=== PATIENT | male | born 1980 | race Caucasian/White ===

== ENCOUNTER → 2019-07-05 11:50 | Outpatient (CLI) | payer BC, SELFPAY ==
[2019-07-05 14:04] LABS: Absolute Neutrophil Count 2.8 X10^3/uL (2.0-7.7); Basophil# 0.04 X10^3/uL; Basophil% 0.8 % (0-1); Eosinophil# 0.08 X10^3/uL; Eosinophils% 1.6 % (0-5); Hematocrit 46.6 % (40-54); Hemoglobin 15.9 g/dL (13.0-16.5); Lymphocyte % 33.2 % (19-41); Mean Corp Hgb Conc 34.1 g/dL (32-36); Mean Corpuscular Hgb 29.9 pg (27.0-32.0); Mean Corpuscular Volume 87.6 fL (80-94); Mean Platelet Vol. 11.4 fl (6.2-12.0); Monocyte% 9.8 % (0-10); NRBC Flagged by Analyzer 0 % (0-5); Neutrophil # 2.77 X10^3/uL (2.7-7.7); Platelet Count 186 K/mm3 (150-450); RBC Distribution Width CV 12.7 % (11.6-14.6); RBC Distribution Width SD 40.4 fl (35.1-43.9); Red Blood Count 5.32 M/mm3 (4.6-6.2); White Blood Count 5.1 K/mm3 (4.4-11.0)
[2019-07-05 14:31] LABS: ALB/GLOB Ratio 1.2 RATIO (0.9-2.4); AST(SGOT) 22 U/L (15-37); Alanine Aminotransfer ALT/SGPT 45 U/L (16-61); Albumin, Serum 4.2 g/dL (3.2-5.0); Alkaline Phosphatase 88 U/L (45-117); Anion Gap 5 (5-15); BUN 15 mg/dL (7-18); BUN/Creat Ratio 14.2 RATIO (10-20); Calcium,Total 9.1 mg/dL (8.5-10.1); Chloride 105 mmol/L (98-107); Creatinine, Serum 1.06 mg/dL (0.70-1.30); EST Glomerular Filtration Rate 82 mL/min (>60); Est Glom Filt Rate - Afr Amer 99 mL/min (>60); Ferritin 399 ng/mL (26-388); Globulin 3.6 g/dL (2.2-4.2); Glucose 91 mg/dL (74-106); Iron 105 ug/dL (65-175); Iron Binding Capacity,Total 347 ug/dL (250-450); PERCENT IRON SATURATION 30.3 % (15.0-55.0); PSA,Total - Annual Screen 1.53 ng/mL (0.00-4.00); Protein, Total 7.8 g/dL (6.4-8.2); Sodium Level 138 mmol/L (136-145); Thyroid Stim Hormone (TSH) 1.08 uIU/mL (0.358-3.74); Uric Acid 7.2 mg/dL (3.5-7.2)
== END ==
PROVIDERS: Family Medicine; Family Provider Family Medicine; PCP Family Medicine; Visit Provider Family Medicine
DX: Z00.00 Encounter for general adult medical examination without abnormal findings (principal); Z83.49 Family history of other endocrine, nutritional and metabolic diseases
CPT/HCPCS: 36415; 80053; 82728; 83540; 83550; 84153; 84443; 84550; 85025; G0103

== ENCOUNTER → 2020-05-01 08:36 | Outpatient (CLI) | payer BC, SELFPAY ==
[2019-07-26 13:01] VITALS: BMI 35.1
[2020-05-01 09:45] LABS: Absolute Lymphocyte Count 1.88 X10^3/uL (0.83-4.51); Absolute Neutrophil Count 1.9 X10^3/uL (2.0-7.7); Basophil# 0.02 X10^3/uL; Basophil% 0.5 % (0-1); Eosinophil# 0.06 X10^3/uL; Eosinophils% 1.4 % (0-5); Hemoglobin 15.5 g/dL (13.0-16.5); Lymphocyte # 1.88 X10^3/ul (4.0); Lymphocyte % 44.7 % (19-41); Mean Corp Hgb Conc 35.2 g/dL (32-36); Mean Corpuscular Hgb 31.1 pg (27.0-32.0); Mean Corpuscular Volume 88.2 fL (80-94); Mean Platelet Vol. 11.4 fl (6.2-12.0); Monocyte# 0.35 X10^3/uL; Monocyte% 8.3 % (0-10); NRBC Flagged by Analyzer 0 % (0-5); Neutrophil # 1.88 X10^3/uL (2.7-7.7); Neutrophil % 44.6 % (47-70); Platelet Count 157 K/mm3 (150-450); RBC Distribution Width CV 12.7 % (11.6-14.6); RBC Distribution Width SD 39.6 fl (35.1-43.9); Red Blood Count 4.99 M/mm3 (4.6-6.2); White Blood Count 4.2 K/mm3 (4.4-11.0)
[2020-05-01 09:59] LABS: ALB/GLOB Ratio 1.3 RATIO (0.9-2.4); AST(SGOT) 21 U/L (15-37); Alanine Aminotransfer ALT/SGPT 42 U/L (16-61); Albumin, Serum 4.2 g/dL (3.2-5.0); Alkaline Phosphatase 76 U/L (45-117); Anion Gap 8 (5-15); BUN 17 mg/dL (7-18); BUN/Creat Ratio 17.2 RATIO (10-20); Bilirubin, Direct 0.15 mg/dL (0.00-0.30); Calcium,Total 8.9 mg/dL (8.5-10.1); Chloride 106 mmol/L (98-107); Cholesterol 165 mg/dL (200); Creatinine, Serum 0.99 mg/dL (0.70-1.30); EST Glomerular Filtration Rate 88 mL/min (>60); Est Glom Filt Rate - Afr Amer 107 mL/min (>60); Globulin 3.2 g/dL (2.2-4.2); Glucose 97 mg/dL (74-106); High Density Lipoprotein 37 mg/dL; Potassium 3.9 mmol/L (3.5-5.1); Protein, Total 7.4 g/dL (6.4-8.2); Sodium Level 140 mmol/L (136-145); Triglycerides 359 mg/dL; Very Low Density Lipoprotein 72 mg/dL (5-40)
[2020-05-01 12:14] LABS: Hepatitis B Surface Antibody Non-Reactive; Hepatitis B Surface Antigen Non-Reactive (Nonreactive); Hepatitis C Antibody Non-Reactive (Nonreactive)
[2020-05-04 08:08] LABS: QNTFERON TB Mitogen Value > 10.00 IU/mL (.); QNTFERON TB Nil Value 0.03 IU/mL (.); QNTFERON TB1+ Ag Value 0.07 IU/mL (.); QNTFERON TB2+ Ag Value 0.04 IU/mL (.)
[2020-05-04 09:29] LABS: Hepatitis B Core Ab Total Negative (Negative); QNTIFERON TB Positive Criteria Negative (Negative)
== END ==
PROVIDERS: PCP Family Medicine; Referring Provider Family Medicine; Visit Provider Family Medicine
DX: L40.0 Psoriasis vulgaris (principal); Z79.899 Other long term (current) drug therapy; E78.1 Pure hyperglyceridemia
CPT/HCPCS: 36415; 80053; 80061; 82248; 85025; 86480; 86704; 86706; 86803; 87340

== ENCOUNTER 2020-08-07 13:00 | Outpatient (RCR) | payer BC, SELFPAY ==
[2019-07-26 13:01] VITALS: BMI 35.1
--- NOTE | 2020-07-10 11:59 | HP.OTEVAL ---
Patient's Visit Information GERTRUDIS HOOKS is a 39 year old M, referred to Occupational Therapy by Dr. Ha Clark MD, with a diagnosis of right thumb sprain/strain. 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 - Pain right thumb 4 Pain Intensity Range: 3, 4 - ROM CMC: right 20 left 15 MP: right 60 left 60 IP: right 70 left 75 Radial Abduction: right 40 left 38 - Strength Sports Journalist: right 130# left 120# Lateral Pinch: right 22# left 26# Tripod Pinch: right 18# left 30# Tip-to-Tip Pinch: rignt 10# left 20# - Sensation Sensation Comments: zak - Quick DASH-Disab of Arm,Shoulder& Hand Quick DASH Score: 36.6650 - Goals Goal:: pt will demo a increase in right lateral and tripod pinch strength by 4 # to increase pts ind. with ADls and IADLs by d/c Goal:: pt will report pain no greater than 1/10 with use of right hand with work tasks by d/c Goal:: Pt will demo understanding of work/lifting and carry ergonomics to decrease stress on tendons to increase pts independent with ADLs, IADLS and work tasks by d/c. Goal:: Pt will demo understanding of orthosis use and precautions by end of 1st session. Pt will return to clinic for orthosis adjustment. - Rehabilitation General Assessment: pt demo with pain and weak pinch- plapation tenderness at right dorsal interosseous muscle- this limits pts ind. with work tasks and home mtg tasks. Pt would benefit from OT services 1-2x week for 4 weeks to decrease pain, cathleen. custom protective orthosis and ed, pt on work ergo to prevent continuation of injury. Today therapist cathleen. custom supportive orthosis for right thumb. ed. on work ergo and joint protection along with US to right 1st dorsal interosseous muscles. Rehabilitation Potential: Good - Anticipated Interventions A/AAROM/PROM, Strengthening, Triggerpoint Release, Modalities, Orthoses, Joint Protection/Energy Conservation, Ergonomic Education, Fine Motor Coord/Saul - Visit Plan Frequency: 1-2x /Week Duration: 4 Weeks TEXT: Thank you for the opportunity to evaluate your patient. For Medicare and Medicare HMO plans, please review the plan of care and approve it. It will need to be FAXED BACK to us at [phone] for Medicare purposes. Please let me know if there are questions or concerns regarding this plan of care. Physician Signature: Date:
--- NOTE | 2020-08-08 09:48 | HP.OTDCSUM ---
It has been my pleasure to treat GERTRUDIS HOOKS under orders from Dr. Ha Clark MD, for the diagnosis of right thumb sprain/strain for a total of 4 visit(s). Please see the following information for a summary of their discharge status. % Improvement: 85 Objective/Function: R Scientist Engineer 175# initial necktie operator pockets and pieces was 130#. R Lat Pinch 26# inital 22 #. R Tripod 19# initial 18#. Tip to Tip 13# inital 10#. pt has made gains in strength and reprots ind. with ADls and IADLs Patient Goals: Decrease Pain, Use Hand/Wrist/Arm Normally Again, Decrease Tingling/Numbness, Be More Independent in ADLS Goal:: pt will demo a increase in right lateral and tripod pinch strength by 4 # to increase pts ind. with ADls and IADLs by d/c Goal:: pt will report pain no greater than 1/10 with use of right hand with work tasks by d/c Goal:: Pt will demo understanding of work/lifting and carry ergonomics to decrease stress on tendons to increase pts independent with ADLs, IADLS and work tasks by d/c. Goal:: Pt will demo understanding of orthosis use and precautions by end of 1st session. Pt will return to clinic for orthosis adjustment. Plan: pt would like discharged Discharge Comments: Pt has met OT goals and reports IND with ADLs and IADLS. If there are questions or concerns regarding this patient's occupational therapy, please fell free to call me at [phone]. Thank you for the referral of this patient. Sincerely, Linnea Sorto, OTR/L, CHT
== END 2020-08-07 19:00 | disposition home or self-care (01) ==
LOC: OT 13:00
PROVIDERS: PCP Family Medicine; Referring Provider Family Medicine; Visit Provider Family Medicine
DX: S69.91XD Unspecified injury of right wrist, hand and finger(s), subsequent encounter (principal)
CPT/HCPCS: 97035; 97140; 97166; 97530; 97760

== ENCOUNTER → 2020-10-30 09:40 | Outpatient (CLI) | payer BC, SELFPAY ==
[2019-07-26 13:01] VITALS: BMI 35.1
[2020-10-30 12:49] LABS: Absolute Lymphocyte Count 2.06 X10^3/uL (0.83-4.51); Absolute Neutrophil Count 2.5 X10^3/uL (2.0-7.7); Basophil# 0.03 X10^3/uL; Basophil% 0.6 % (0-1); Eosinophil# 0.09 X10^3/uL; Eosinophils% 1.8 % (0-5); Hematocrit 45.5 % (40-54); Hemoglobin 15.5 g/dL (13.0-16.5); Lymphocyte # 2.06 X10^3/ul (4.0); Lymphocyte % 40.7 % (19-41); Mean Corp Hgb Conc 34.1 g/dL (32-36); Mean Corpuscular Hgb 30.2 pg (27.0-32.0); Mean Corpuscular Volume 88.5 fL (80-94); Mean Platelet Vol. 11.5 fl (6.2-12.0); Monocyte# 0.37 X10^3/uL; Monocyte% 7.3 % (0-10); NRBC Flagged by Analyzer 0 % (0-5); Neutrophil # 2.49 X10^3/uL (2.7-7.7); Neutrophil % 49.2 % (47-70); Platelet Count 176 K/mm3 (150-450); RBC Distribution Width CV 12.6 % (11.6-14.6); RBC Distribution Width SD 40.8 fl (35.1-43.9); Red Blood Count 5.14 M/mm3 (4.6-6.2); White Blood Count 5.1 K/mm3 (4.4-11.0)
[2020-10-30 13:23] LABS: ALB/GLOB Ratio 1.3 RATIO (0.9-2.4); AST(SGOT) 21 U/L (15-37); Alanine Aminotransfer ALT/SGPT 38 U/L (16-61); Albumin, Serum 4.1 g/dL (3.2-5.0); Alkaline Phosphatase 81 U/L (45-117); Anion Gap 5 (5-15); BUN 16 mg/dL (7-18); BUN/Creat Ratio 13.9 RATIO (10-20); Calcium,Total 8.9 mg/dL (8.5-10.1); Chloride 104 mmol/L (98-107); Cholesterol 178 mg/dL (200); Creatinine, Serum 1.15 mg/dL (0.70-1.30); EST Glomerular Filtration Rate 74 mL/min (>60); Est Glom Filt Rate - Afr Amer 90 mL/min (>60); Ferritin 246 ng/mL (26-388); Globulin 3.1 g/dL (2.2-4.2); Glucose 99 mg/dL (74-106); High Density Lipoprotein 42 mg/dL; Protein, Total 7.2 g/dL (6.4-8.2); Sodium Level 138 mmol/L (136-145); Triglycerides 401 mg/dL
== END ==
PROVIDERS: PCP Family Medicine; Referring Provider Family Medicine; Visit Provider Family Medicine
DX: E78.1 Pure hyperglyceridemia (principal); Z14.8 Genetic carrier of other disease
CPT/HCPCS: 36415; 80053; 80061; 82728; 85025

== ENCOUNTER → 2021-06-22 10:04 | Outpatient (CLI) | payer BC, SELFPAY ==
[2021-06-29 17:07] LABS: QNTFERON TB Mitogen Value > 10.00 IU/mL (.); QNTFERON TB1+ Ag Value 0.06 IU/mL (.); QNTFERON TB2+ Ag Value 0.07 IU/mL (.)
[2021-06-29 20:17] LABS: QNTIFERON TB Positive Criteria Negative (Negative)
== END ==
PROVIDERS: PCP Family Medicine; Referring Provider Family Medicine; Visit Provider Dermatology
DX: L40.0 Psoriasis vulgaris (principal); Z79.899 Other long term (current) drug therapy
CPT/HCPCS: 36415; 86480

== ENCOUNTER → 2022-06-27 | Outpatient (CLI) | payer BC, SELFPAY ==
[2022-06-27 15:22] LABS: Absolute Lymphocyte Count 1.76 X10^3/uL (0.83-4.51); Absolute Neutrophil Count 1.8 X10^3/uL (2.0-7.7); Basophil# 0.03 X10^3/uL; Basophil% 0.7 % (0-1); Eosinophil# 0.05 X10^3/uL; Eosinophils% 1.2 % (0-5); Hematocrit 46.4 % (40-54); Hemoglobin 16.3 g/dL (13.0-16.5); Lymphocyte # 1.76 X10^3/ul (0.83-4.51); Lymphocyte % 43.7 % (19-41); Mean Corp Hgb Conc 35.1 g/dL (32-36); Mean Corpuscular Volume 88.4 fL (80-94); Mean Platelet Vol. 11.5 fl (6.2-12.0); Monocyte# 0.38 X10^3/uL; Monocyte% 9.4 % (0-10); NRBC Flagged by Analyzer 0 % (0-5); Neutrophil # 1.79 X10^3/uL (2.7-7.7); Neutrophil % 44.5 % (47-70); Platelet Count 196 K/mm3 (150-450); RBC Distribution Width CV 12.8 % (11.6-14.6); RBC Distribution Width SD 41.3 fl (35.1-43.9); Red Blood Count 5.25 M/mm3 (4.6-6.2)
[2022-06-27 15:44] LABS: ALB/GLOB Ratio 1.2 RATIO (0.9-2.4); AST(SGOT) 19 U/L (15-37); Alanine Aminotransfer ALT/SGPT 37 U/L (16-61); Albumin, Serum 4.1 g/dL (3.2-5.0); Alkaline Phosphatase 72 U/L (45-117); Anion Gap 5 (5-15); BUN 14 mg/dL (7-18); BUN/Creat Ratio 12.5 RATIO (10-20); Calcium,Total 9.1 mg/dL (8.5-10.1); Chloride 105 mmol/L (98-107); Creatinine, Serum 1.12 mg/dL (0.70-1.30); EST Glomerular Filtration Rate 76 mL/min (>60); Est Glom Filt Rate - Afr Amer 92 mL/min (>60); Globulin 3.3 g/dL (2.2-4.2); Glucose 83 mg/dL (74-106); Potassium 4.4 mmol/L (3.5-5.1); Protein, Total 7.4 g/dL (6.4-8.2); Sodium Level 137 mmol/L (136-145)
[2022-06-28 07:44] LABS: Hepatitis B Surface Antibody Non-Reactive
[2022-06-29 21:07] LABS: HEPATITIS B SURFACE AG Negative (Negative); Hep C Antibodies <0.1 s/co ratio (0.0-0.9); Hepatitis A IgM Antibody Negative (Negative); Hepatitis B Core AB IgM Negative (Negative); QNTFERON TB Mitogen Value > 10.00 IU/mL (.); QNTFERON TB Nil Value 0.01 IU/mL (.); QNTFERON TB1+ Ag Value 0.03 IU/mL (.); QNTFERON TB2+ Ag Value 0.04 IU/mL (.)
[2022-06-30 15:29] LABS: Hepatitis A AB, Total Negative (Negative); QNTIFERON TB Positive Criteria Negative (Negative)
== END | disposition home or self-care (01) ==
LOC: MFPLAB 11:27
PROVIDERS: PCP Family Medicine; Referring Provider Family Medicine; Visit Provider Physician Assistant
DX: L40.0 Psoriasis vulgaris (principal); Z79.899 Other long term (current) drug therapy
CPT/HCPCS: 36415; 80053; 80074; 85025; 86480; 86706; 86708

== ENCOUNTER → 2023-07-25 | Outpatient (CLI) | payer BC, SELFPAY ==
[2023-07-29 21:07] LABS: Hepatitis B Core Ab Total Negative (Negative); QNTFERON TB Mitogen Value > 10.00 IU/mL (.); QNTFERON TB Nil Value 0 IU/mL (.); QNTFERON TB1+ Ag Value 0 IU/mL (.); QNTFERON TB2+ Ag Value 0.03 IU/mL (.); QNTIFERON TB Positive Criteria Negative (Negative)
== END | disposition home or self-care (01) ==
LOC: MFPLAB 09:12
PROVIDERS: PCP Family Medicine; Visit Provider Physician Assistant Medical
DX: L40.0 Psoriasis vulgaris (principal); Z79.899 Other long term (current) drug therapy; L82.0 Inflamed seborrheic keratosis; L29.8 Other pruritus; R20.8 Other disturbances of skin sensation; L53.8 Other specified erythematous conditions
CPT/HCPCS: 36415; 86480; 86704

== ENCOUNTER → 2024-06-03 | Outpatient (CLI) | payer BC, SELFPAY ==
[2024-06-05 19:06] LABS: QNTFERON TB Mitogen Value > 10.00 IU/mL (.); QNTFERON TB Nil Value 0 IU/mL (.); QNTFERON TB1+ Ag Value 0.01 IU/mL (.); QNTFERON TB2+ Ag Value 0.03 IU/mL (.); QNTIFERON TB Positive Criteria Negative (Negative)
== END | disposition home or self-care (01) ==
PROVIDERS: PCP Family Medicine; Referring Provider Physician Assistant Medical; Visit Provider Physician Assistant Medical
DX: L40.0 Psoriasis vulgaris (principal); Z79.899 Other long term (current) drug therapy
CPT/HCPCS: 36415; 86480

== ENCOUNTER → 2024-06-04 | Outpatient (CLI) | payer BC, SELFPAY ==
[2024-06-04 10:42] LABS: Absolute Lymphocyte Count 1.73 X10^3/uL (0.83-4.51); Absolute Neutrophil Count 1.8 X10^3/uL (2.0-7.7); Basophil# 0.02 X10^3/uL; Basophil% 0.5 % (0-1); Eosinophil# 0.09 X10^3/uL; Eosinophils% 2.3 % (0-5); Hematocrit 44.6 % (40-54); Hemoglobin 15.1 g/dL (13.0-16.5); Lymphocyte # 1.73 X10^3/ul (0.83-4.51); Lymphocyte % 43.4 % (19-41); Mean Corp Hgb Conc 33.9 g/dL (32-36); Mean Corpuscular Hgb 30.2 pg (27.0-32.0); Mean Corpuscular Volume 89.2 fL (80-94); Mean Platelet Vol. 11.8 fl (6.2-12.0); Monocyte# 0.34 X10^3/uL; Monocyte% 8.5 % (0-10); NRBC Flagged by Analyzer 0 % (0-5); Neutrophil # 1.78 X10^3/uL (2.7-7.7); Neutrophil % 44.5 % (47-70); Platelet Count 164 K/mm3 (150-450); RBC Distribution Width CV 12.9 % (11.6-14.6)
[2024-06-04 11:32] LABS: ALB/GLOB Ratio 1.2 RATIO (0.9-2.4); AST(SGOT) 19 U/L (15-37); Alanine Aminotransfer ALT/SGPT 37 U/L (16-61); Albumin, Serum 3.9 g/dL (3.2-5.0); Alkaline Phosphatase 68 U/L (45-117); Anion Gap 6 (5-15); BUN 17 mg/dL (7-18); BUN/Creat Ratio 15.5 RATIO (10-20); Calcium,Total 9.2 mg/dL (8.5-10.1); Chloride 107 mmol/L (98-107); Cholesterol 192 mg/dL (200); EST Glomerular Filtration Rate 77 mL/min (>60); Est Glom Filt Rate - Afr Amer 93 mL/min (>60); Globulin 3.2 g/dL (2.2-4.2); Glucose 99 mg/dL (74-106); High Density Lipoprotein 34 mg/dL; Protein, Total 7.1 g/dL (6.4-8.2); Sodium Level 139 mmol/L (136-145); Triglycerides 410 mg/dL
== END | disposition home or self-care (01) ==
LOC: MFPLAB 08:03
PROVIDERS: PCP Family Medicine; Visit Provider Family Medicine
DX: Z13.1 Encounter for screening for diabetes mellitus (principal); E78.1 Pure hyperglyceridemia; Z14.8 Genetic carrier of other disease; L40.9 Psoriasis, unspecified
CPT/HCPCS: 36415; 80053; 80061; 85025; 86900; 86901

== ENCOUNTER → 2024-09-03 | Outpatient (CLI) | payer BC, SELFPAY ==
[2024-09-03 10:23] LABS: Absolute Lymphocyte Count 0.73 X10^3/uL (0.83-4.51); Absolute Neutrophil Count 4.6 X10^3/uL (2.0-7.7); Basophil# 0.03 X10^3/uL; Basophil% 0.5 % (0-1); Eosinophil# 0.02 X10^3/uL; Eosinophils% 0.3 % (0-5); Hematocrit 44.9 % (40-54); Hemoglobin 14.9 g/dL (13.0-16.5); Lymphocyte # 0.73 X10^3/ul (0.83-4.51); Lymphocyte % 11.5 % (19-41); Mean Corp Hgb Conc 33.2 g/dL (32-36); Mean Corpuscular Hgb 29.6 pg (27.0-32.0); Mean Corpuscular Volume 89.1 fL (80-94); Mean Platelet Vol. 11.5 fl (6.2-12.0); Monocyte# 0.92 X10^3/uL; Monocyte% 14.5 % (0-10); NRBC Flagged by Analyzer 0 % (0-5); Neutrophil # 4.61 X10^3/uL (2.7-7.7); Neutrophil % 72.7 % (47-70); Platelet Count 165 K/mm3 (150-450); RBC Distribution Width CV 12.8 % (11.6-14.6); RBC Distribution Width SD 41.8 fl (35.1-43.9); Red Blood Count 5.04 M/mm3 (4.6-6.2); White Blood Count 6.3 K/mm3 (4.4-11.0)
[2024-09-04 10:07] LABS: Lyme Scn Total Ab w/Rflx Negative (Negative)
== END | disposition home or self-care (01) ==
LOC: MFPLAB 08:30
PROVIDERS: PCP Family Medicine; Referring Provider Family Medicine; Visit Provider Family Medicine
DX: R68.89 Other general symptoms and signs (principal)
CPT/HCPCS: 36415; 85025; 86140; 86618

== ENCOUNTER 2024-11-19 09:13 | Day surgery (SDC) | payer BC, SELFPAY ==
[2024-11-19] VITALS (8 sets, daily range): BP systolic 103–136; BP diastolic 64–96; PULSE 70–82; RESP 16–20; TEMP 36–36.4; O2SAT 95–98; BMI 34.8
--- NOTE | 2024-11-19 09:39 | PCM.PRE.AN2 ---
ASA Classification* ASA Classification ASA Classification: 2 Assessment & Plan Anesthesia* Anesthesia Assessment Anesthesia Assessment: Discussed sedation and/or anesthesia options, risks, benefits, and alternatives with patient/parents/legal guardian/POA. Questions invited. The patient/parents/legal guardian/POA seems to understand and agrees to proceed with anesthesia plan. Reviewed the physical assessment, medical history, allergy history and patient home medications list prior to surgery/procedure/anesthetic and documented any changes. Performed airway and anesthesia risk assessments. Anesthesia Type Anesthesia Type: MAC Anesthesia Focused Assessment* Airway Assessment Mouth opens: >3 cm Mallampati Score: II Focused Labs Anesthesia Preop lab: CBC WBC 6.3 K/mm3 (4.4-11.0) 09/03/24 08:30 09/03/24 RBC 5.04 M/mm3 (4.6-6.2) 09/03/24 08:30 09/03/24 Hgb 14.9 g/dL (13.0-16.5) 09/03/24 08:30 09/03/24 Hct 44.9 % (40-54) 09/03/24 08:30 09/03/24 Plt Count 165 K/mm3 (150-450) 09/03/24 08:30 09/03/24 CHEMISTRY Potassium 4.0 mmol/L (3.5-5.1) 06/04/24 08:04 06/04/24 Sodium 139 mmol/L (136-145) 06/04/24 08:04 06/04/24 BUN 17 mg/dL (7-18) 06/04/24 08:04 06/04/24 Creatinine 1.10 mg/dL (0.70-1.30) 06/04/24 08:04 06/04/24 Glucose 99 mg/dL (74-106) 06/04/24 08:04 06/04/24 TSH 1.08 uIU/mL (0.358-3.74) 07/05/19 11:54 07/05/19 COAG Pre-Assessment Diagnosis/Proposed Procedure Planned Operative Procedure(s): COLONOSCOPY Anesthesia History Anesthesia History - college admissions counselor: Anesthesia History - college admissions counselor Hx Hospitalization No 11/18/24 12:53 Any Problems With Anesthesia No 11/18/24 12:53 Cholinesterase deficiency No 11/18/24 12:53 You/Your Family Experience No 11/18/24 12:53 fever (hyperthermia) with Relationship Recent Exposure to Contagious Disease Does patient have nerve No 11/18/24 12:53 stimulator Patient instructed to have device shut off --Does patient have Pacemaker or ICD? When Was Last Pacemaker Check QUESTION #4 FULL TEXT: You/Your Family Experience fever (hyperthermia) with Anesthesia Last Oral Intake Last Oral intake: Last Oral Intake NPO since Meds taken in AM with sips of water? Meds patient instructed to take am of surgery PONV PONV - college admissions counselor: PONV - college admissions counselor Female No 11/18/24 12:53 HX of Motion Sickness No 11/18/24 12:53 HX of N/V After Surgery No 11/18/24 12:53 Non-Smoker No 11/18/24 12:53 Duration of Surgery greater No 11/18/24 12:53 than 60 minutes Number of Risk Factors PONV Score Height & Weight Height & Weight: Anesthesia: Height & Weight Height 6 ft 11/05/24 14:14 Respiratory Assessment Respiratory Assessment - college admissions counselor: Respiratory Tract Infection Hx - college admissions counselor Hx Respiratory Tract Infection No 11/18/24 12:53 STOP Sleep Apnea STOP Sleep Apnea - college admissions counselor: STOP Sleep Apnea - college admissions counselor Hx Hypertension No 11/18/24 12:53 Hx Sleep Apnea No 11/18/24 12:53 CPAP BIPAP Do you snore loudly (louder No 11/18/24 12:53 than talking or can be heard Do you often feel tired/ No 11/18/24 12:53 fatigued/ sleepy during daytime? Has anyone observed you stop No 11/18/24 12:53 breathing during sleep? STOP Results Negative 11/18/24 12:53 QUESTION #5 FULL TEXT : Do you snore loudly (louder than talking or can be heard through closed doors)? Tobacco Use History Tobacco Use History - college admissions counselor: Tobacco Use History - college admissions counselor Tobacco Use Smoking Status Light Smoker (<10/day) 11/18/24 12:53 Hx Tobacco Use Yes 11/18/24 12:53 Years Smoking Packs Smoked per Day Smoking Cessation Date was within the last 15 years Hx Smoking Cessation Date Hx Smoking Cessation Counseling Hematologic Medial History Hematologic Hx - college admissions counselor: Hematologic Medical Hx - body artist Hx of Blood Transfusion No 11/18/24 12:53 Hx of Transfusion in last 3 No 11/18/24 12:53 Months Date of Last Transfusion (if within last 3 months) Ever experience any problems No 11/18/24 12:53 with transfusion(s)? Specify any problems Hx of Preganancy in last 3 N/A 11/18/24 12:53 Months Nurse Filling Out Transfusion [facility] 11/18/24 12:53 & Questions: Date: 11/18/24 11/18/24 12:53 Time: 12:59 11/18/24 12:53 Patient unable to answer at this time (ie. confused, unrespo /Reproduction History /Reproductive History - college admissions counselor: /Reproductive Hx- college admissions counselor Hx Now Gestational Age (in weeks): EDC: Hx Hx Para Hx Section SAB PFSH Medical History Marijuana use Alcohol use History of steroid therapy High cholesterol Gastric reflux Smoker Psoriasis Hypertriglyceridemia Home Medications ?Medication ?Instructions ?Recorded ?Last Taken ?Type omega 3-dha 60 mg-epa 90 mg-fish 500 mg PO DAILY 07/12/19 11/13/24 History oil 500 mg capsule, delayed release ustekinumab 90 mg/mL subcutaneous 90 mg subcut Q12W 11/05/24 Unknown History syringe (Stelara) Allergy/AdvReac Type Severity Reaction Status Date / Time No Known Allergies Allergy Verified 07/26/19 13:01 Family History Father hemachromatosis Brother Crohn's disease Surgical History Hx of appendectomy Social History household members: spouse current occupational status: employed Smoking Status: Light Smoker (<10/day) alcohol intake: current alcohol intake frequency: holidays/special occasions only substance use type: does not use Review of Systems (Anesthesia) ROS Narrative System reviewed and no additional complaints, except as documented.
--- NOTE | 2024-11-19 10:03 | PCM.HP.STD ---
HPI - General General Date of Admission: 11/19/24 Date of Service: 11/19/24 Chief Complaint: Screening colonoscopy HPI Narrative GERTRUDIS HOOKS, is a 44 M who presents for screening colonoscopy. No previous colonoscopies. No family history of colon polyps or colon cancers. He denies any GI symptoms or problems [facility] Medical History Marijuana use Alcohol use History of steroid therapy High cholesterol Gastric reflux Smoker Psoriasis Hypertriglyceridemia Home Medications ?Medication ?Instructions ?Recorded ?Last Taken ?Type omega 3-dha 60 mg-epa 90 mg-fish 500 mg PO DAILY 07/12/19 11/13/24 History oil 500 mg capsule, delayed release ustekinumab 90 mg/mL subcutaneous 90 mg subcut Q12W 11/05/24 Unknown History syringe (Stelara) Allergy/AdvReac Type Severity Reaction Status Date / Time No Known Allergies Allergy Verified 11/19/24 09:45 Family History Father hemachromatosis Brother Crohn's disease Surgical History Hx of appendectomy Social History household members: spouse current occupational status: employed Smoking Status: Light Smoker (<10/day) alcohol intake: current alcohol intake frequency: holidays/special occasions only substance use type: does not use Vital Signs Vital Signs Vital Signs: 11/19/24 09:46 11/19/24 09:46 Temperature 97.3 F L Temperature Source Temporal Pulse Rate 71 Respiratory Rate 16 Respiratory Pattern Normal Blood Pressure 136/90 H Blood Pressure Mean 105 Blood Pressure Source Monitor Blood Pressure Position Semi-Fowlers Blood Pressure Location Left Arm Pulse Ox 98 Oxygen Delivery Method Room Air Weight Weight: 256 lb 9.889 oz Body Mass Index (BMI) 34.8 Physical Exam Const alert, oriented x3 and no apparent distress Assessment & Plan Assessment/Plan (1) Encounter for screening for malignant neoplasm of colon: PLAN: Plan The patient is a 44-year-old male who is being seen today for colonoscopy. This will be his first colonoscopy. He has no family history of GI polyps or cancers. He denies any GI concerns or symptoms. We discussed the details of the planned procedure and he wishes to proceed. This will begin momentarily Charges/Coding Visit Charges Inpatient E&M: 74263 Init Hosp L1
--- NOTE | 2024-11-19 10:30 | EGD_PTH ---
PATIENT: GERTRUDIS HOOKS LOC: EN U#:[id number] AGE/SX: 44/M ROOM: RE11/19/[address]: Dr. Filippo Gonzalez MD : 1980 BED: DIS: 11/19/2024 SPEC #: [id number] RECD: 11/19/24 13:36 STATUS: BARBARA REViridiana #: [id number] JOSE: 11/19/24 10:[address]: Filippo Gonzalez DEPT: SURGICAL PATHOLOGY RECD BY: Roman Benavides ENTERED: 11/19/24 13:36 SP TYPE: EGD BIOPSY OTHR DR: Charlie Thomas MD Tissues: A - Rectum, NOS Procedures: Surgery Specimen Level IV HEADER OPERATION: Colonoscopy PRE-OP DIAGNOSIS: Encounter for screening for malignant neoplasm of colon TISSUE SUBMITTED: A- Rectum biopsy MICROSCOPIC DIAGNOSIS A. Rectum, biopsy: * Hyperplasic polyp. MICROSCOPIC DESCRIPTION Slides are reviewed. GROSS DESCRIPTION A. Received in fixative is one container labeled with the patient's name and designated Rectum biopsy. The specimen consists of one irregular fragment of light jimenez soft tissue that measures 0.6 x 0.2 x 0.2 cm. The specimen is totally submitted in one cassette. GISSELL/ 11/19/2024 CPT:06403
--- NOTE | 2024-11-19 10:40 | OP.CCLET_ITS ---
11/19/2024 Charlie Thomas Md Re : Colonoscopy procedure for Pablo Thomas This procedure was performed on Tuesday, November 19, 2024. My impressions and recommendations are as follows: Impressions : - Preparation of the colon was fair. - One 3 mm polyp in the rectum, removed with a cold biopsy forceps. Resected and retrieved. - The examination was otherwise normal on direct and retroflexion views. Recommendations : - Discharge patient to home (ambulatory). - High fiber diet. - Await pathology results. - Repeat colonoscopy in 5-10 years for surveillance based on pathology results. - Return to my office PRN - Continue present medications. My findings are described in the full procedure note, which is enclosed. If I can be of further assistance, please feel free to contact me at . Sincerely, Filippo Gonzalez MD 11/19/2024 10:39:24 AM This report has been signed electronically.
--- NOTE | 2024-11-19 10:40 | OP.COLON_ITS ---
Patient Name: Pablo Barnes Procedure Date: 11/19/2024 10:00 AM Date of : 1980 Age: 44 Procedure: Colonoscopy Indications: Screening for colorectal malignant neoplasm Providers: Filippo Gonzalez MD Referring MD: Charlie Thomas Md Medicines: Monitored Anesthesia Care Patient Profile: Refer to note in patient chart for documentation of history and physical. Last Colonoscopy: none. The patient's first colonoscopy is today. Complications: No immediate complications. Estimated blood loss: Minimal. Procedure: Pre-Anesthesia Assessment: - Prior to the procedure, a History and Physical was performed, and patient medications and allergies were reviewed. The patient's tolerance of previous anesthesia was also reviewed. The risks and benefits of the procedure and the sedation options and risks were discussed with the patient. All questions were answered, and informed consent was obtained. Prior Anticoagulants: The patient has taken no anticoagulant or antiplatelet agents. ASA Grade Assessment: II - A patient with mild systemic disease. After reviewing the risks and benefits, the patient was deemed in satisfactory condition to undergo the procedure. After I obtained informed consent, the scope was passed under direct vision. Throughout the procedure, the patient's blood pressure, pulse, and oxygen saturations were monitored continuously. The colonoscope was introduced through the anus and advanced to the cecum, identified by appendiceal orifice and ileocecal valve. The ileocecal valve, appendiceal orifice, and rectum were photographed. The entire colon was well visualized. The colonoscopy was performed without difficulty. The patient tolerated the procedure well. The quality of the bowel preparation was fair. Moderate Sedation: See the other procedure note for documentation of moderate sedation with intraservice time. Scope In: 10:10:04 AM Scope Withdrawal Time 0 hours 0 minutes 3 seconds Scope Out: 10:32:14 AM Total Procedure Duration Time 0 hours 22 minutes 10 seconds Findings: The perianal and digital rectal examinations were normal. A 3 mm polyp was found in the rectum. The polyp was semi-sessile. The polyp was removed with a cold biopsy forceps. Resection and retrieval were complete. Verification of patient identification for the specimen was done by the nurse using the patient's name, date and medical record number. Estimated blood loss was minimal. The exam was otherwise without abnormality on direct and retroflexion views. Impression: - Preparation of the colon was fair. - One 3 mm polyp in the rectum, removed with a cold biopsy forceps. Resected and retrieved. - The examination was otherwise normal on direct and retroflexion views. Recommendation: - Discharge patient to home (ambulatory). - High fiber diet. - Await pathology results. - Repeat colonoscopy in 5-10 years for surveillance based on pathology results. - Return to my office PRN - Continue present medications. Filippo Gonzalez MD 11/19/2024 10:39:24 AM This report has been signed electronically. Number of Addenda: 0 Note Initiated On: 11/19/2024 10:00 AM
--- NOTE | 2024-11-19 10:40 | PCM.POST.ANE ---
Anesthesia: Postop Eval I Current Vital Signs Temperature: 96.8 F Pulse Rate: 80 Blood Pressure: 109/64 Respiratory Rate: 20 Pulse Ox: 95 Oxygen Delivery Method: Room Air Assessment Airway patent: Yes Spontaneous unlabored respirations: Yes Mental status: Awake and Calm nausea: No Vomiting: No Anesthesia Complication: No Fluid Hydration Crystalloid volume administer (ml): 20 Total IV fluid infused: 20 Progress Note Anesthesia document: Postop Eval 1 completed: Yes
--- NOTE | 2024-11-19 15:16 | POSTOPAN2_ITS ---
Anesthesia Postop Eval I Sum Postop Eval Completion status Anesthesia document: Postop Eval 1 completed: Yes Anesthesia Postop Eval I Summary Anesthesia Postop Eval I Summary: Anesthesia Postop Eval I: Assessment Summary Airway patent Yes 11/19/24 10:41 INCOME [email or web address] Spontaneous unlabored Yes 11/19/24 10:41 INCOME [email or web address] respirations Mental status Awake,Calm 11/19/24 10:41 INCOME [email or web address] nausea No 11/19/24 10:41 INCOME [email or web address] Vomiting No 11/19/24 10:41 INCOME [email or web address] Anesthesia Postop Eval I: Fluid Summary Crystalloid volume administer 20 11/19/24 10:41 INCOME [email or web address] (ml) Colloids volume administered ( ml) Blood Product volume administered (ml) Total IV fluid infused 20 11/19/24 10:41 INCOME [email or web address] Anesthesia Postop Eval I: Summary Notes Anesthesia Complication No 11/19/24 10:41 INCOME [email or web address] Anesthesia Complication Comment: Post-operative progress note Anesthesia: Postop Eval II Evaluation Mental status: Awake Pain Level: 0 nausea: No Vomiting: No
--- NOTE | 2024-11-19 15:16 | PCM.POSTANE2 ---
Anesthesia Postop Eval I Sum Postop Eval Completion status Anesthesia document: Postop Eval 1 completed: Yes Anesthesia Postop Eval I Summary Anesthesia Postop Eval I Summary: Anesthesia Postop Eval I: Assessment Summary Airway patent Yes 11/19/24 10:41 CONFIDENTIAL [email or web address] Spontaneous unlabored Yes 11/19/24 10:41 CONFIDENTIAL [email or web address].[email or web address] respirations Mental status Awake,Calm 11/19/24 10:41 CONFIDENTIAL INVESTIGATOR.[email or web address] nausea No 11/19/24 10:41 CONFIDENTIAL INVESTIGATOR.[email or web address] Vomiting No 11/19/24 10:41 CONFIDENTIAL [email or web address] Anesthesia Postop Eval I: Fluid Summary Crystalloid volume administer 20 11/19/24 10:41 CONFIDENTIAL [email or web address].[email or web address] (ml) Colloids volume administered ( ml) Blood Product volume administered (ml) Total IV fluid infused 20 11/19/24 10:41 CONFIDENTIAL [email or web address].[email or web address] Anesthesia Postop Eval I: Summary Notes Anesthesia Complication No 11/19/24 10:41 CONFIDENTIAL [email or web address] Anesthesia Complication Comment: Post-operative progress note Anesthesia: Postop Eval II Evaluation Mental status: Awake Pain Level: 0 nausea: No Vomiting: No
== END 2024-11-19 11:29 | disposition home or self-care (01) ==
LOC: EN 09:13 → AC 09:15
PROVIDERS: PCP Family Medicine; Referring Provider Family Medicine; Visit Provider Surgery
PROC: 0DJD8ZZ Inspection of Lower Intestinal Tract, Via Natural or Artificial Opening Endoscopic (ICD-10-PCS; CPT 45378; principal; 2024-11-19 10:25)
DX: Z12.11 Encounter for screening for malignant neoplasm of colon (principal); K62.1 Rectal polyp; E78.00 Pure hypercholesterolemia, unspecified; E78.1 Pure hyperglyceridemia; K21.9 Gastro-esophageal reflux disease without esophagitis; F17.200 Nicotine dependence, unspecified, uncomplicated; Z79.899 Other long term (current) drug therapy
CPT/HCPCS: 45380; 88305; A4216

== ENCOUNTER → 2025-06-06 | Outpatient (CLI) | payer BC, SELFPAY ==
[2025-06-06 17:50] LABS: Hematocrit 43.9 % (40-54); Hemoglobin 15.5 g/dL (13.0-16.5); Mean Corp Hgb Conc 35.3 g/dL (32-36); Mean Corpuscular Volume 86.1 fL (80-94); Mean Platelet Vol. 11.7 fl (6.2-12.0); Platelet Count 180 K/mm3 (150-450); RBC Distribution Width CV 12.7 % (11.6-14.6); RBC Distribution Width SD 39.5 fl (35.1-43.9); Red Blood Count 5.10 M/mm3 (4.6-6.2); White Blood Count 4.6 K/mm3 (4.4-11.0)
[2025-06-06 18:40] LABS: AST(SGOT) 21 U/L (<=37); Alanine Aminotransfer ALT/SGPT 23 U/L (<=46); Albumin, Serum 4.6 g/dL (3.5-5.0); Alkaline Phosphatase 76 U/L (40-129); Anion Gap 14 (5-15); BUN 18 mg/dL (4-19); BUN/Creat Ratio 17.2 RATIO (10-20); Calcium,Total 9.7 mg/dL (7.6-11.0); Carbon Dioxide 22.1 mmol/L (21.0-32.0); Chloride 103 mmol/L (98-108); Cholesterol 226 mg/dL (<=200); Globulin 2.5 g/dL (2.2-4.2); Glucose 113 mg/dL (70-99); Low Density Lipoprotein Calc. 63 mg/dL; Potassium 3.7 mmol/L (3.3-5.1); Triglycerides 646 mg/dL; Very Low Density Lipoprotein 129 mg/dL (5-40); Vitamin D,25 Hydroxy 24.9 ng/mL (30-100); cholesterol:hdl ratio screen 6.77
== END | disposition home or self-care (01) ==
LOC: MFPLAB 14:51
PROVIDERS: PCP Family Medicine; Visit Provider Family Medicine
DX: Z00.00 Encounter for general adult medical examination without abnormal findings (principal); E78.1 Pure hyperglyceridemia; Z13.1 Encounter for screening for diabetes mellitus
CPT/HCPCS: 36415; 80053; 80061; 82306; 85027

== ENCOUNTER → 2025-06-17 | Outpatient (CLI) | payer BC, SELFPAY ==
[2025-06-21 11:08] LABS: QNTFERON TB Mitogen Value > 10.00 IU/mL (.); QNTFERON TB Nil Value 0.04 IU/mL (.); QNTFERON TB1+ Ag Value 0.04 IU/mL (.); QNTFERON TB2+ Ag Value 0.03 IU/mL (.); QNTIFERON TB Positive Criteria Negative (Negative)
== END | disposition home or self-care (01) ==
LOC: MTLAB 13:22
PROVIDERS: PCP Family Medicine; Referring Provider Physician Assistant Medical; Visit Provider Physician Assistant Medical
DX: L40.0 Psoriasis vulgaris (principal)
CPT/HCPCS: 36415; 86480